=== PATIENT | female | born 1970 | race Two or more races ===

== ENCOUNTER 2025-02-18 23:04 | Emergency (ER) | payer SELFPAY ==
[~2025-02-18] VITALS: Ht 160 cm; Wt 63.5 kg
[2025-02-18] MEDS ORDERED: VALA100026 PO (23:53)
[2025-02-18] MEDS ORDERED: PRED20TA PO (23:53)
[2025-02-19 00:11] LABS: BASOPHILS % (AUTO) 0.3 % (0.0-2.0); EOSINOPHILS # (AUTO) 0.3 K/uL (0.0-0.7); EOSINOPHILS % (AUTO) 4.6 % (0.0-7.0); HEMOGLOBIN 11.7 g/dL (10.9-14.3); MEAN CORPUSCULAR HEMOGLOBIN 28.8 uug (24.7-32.8); MEAN CORPUSCULAR HGB CONC 34 g/dL (32.3-35.6); MEAN CORPUSCULAR VOLUME 85.9 fL (75.5-95.3); MONOCYTES # (AUTO) 0.6 K/uL (0.1-1.30); MONOCYTES % (AUTO) 9.6 % (0.0-11.0); NEUTROPHILS # (AUTO) 3.9 K/uL (1.8-8.9); NEUTROPHILS % (AUTO) 67.5 % (38.5-71.5); PLATELET COUNT (AUTO) 223 K/uL (179-408); RED BLOOD CELL COUNT(AUTO) 4.07 MIL/uL (3.63-4.92); RED CELL DISTRIBUTION WIDTH 12.7 % (12.3-17.7); WHITE BLOOD COUNT (AUTO) 5.8 K/uL (3.8-11.8)
[2025-02-19 00:14] LABS: DIFFERENTIAL COMMENT 1
[2025-02-19 00:25] LABS: CALCIUM 9.5 mg/dL (8.5-10.1); CARBON DIOXIDE 27 mmol/L (21-32); CHLORIDE 102 mmol/L (98-107); CREATININE 0.7 mg/dL (0.6-1.3); GLUCOSE 90 mg/dL (74-106); POTASSIUM 4.1 mmol/L (3.5-5.1); SODIUM SERUM 138 mmol/L (136-145); UREA NITROGEN, BLOOD 15 mg/dL (7-18)
[2025-02-19] MEDS ORDERED: predniSONE 20 MG TABLET ONE (00:34)
[2025-02-19] MEDS ORDERED: ACYCLOVIR 200 MG CAPSULE ONE (00:35)
[2025-02-19 00:36] LABS: ALANINE AMINOTRANSFERASE 19 U/L (14-59); ALBUMIN 3.6 g/dL (3.4-5.0); ALKALINE PHOSPHATASE 99 U/L (50-136); ASPARTATE AMINOTRANSFERASE 18 U/L (15-37); BILIRUBIN,TOTAL 0.3 mg/dL (0.2-1.0); NT-PRO BNP 138 pg/mL (0-125); TOTAL PROTEIN, SERUM 8.7 g/dL (6.4-8.2)
[2025-02-19] MEDS: ACYCLOVIR 400 MG TABLET PO ONE (00:36)
[2025-02-19] MEDS: predniSONE 20 MG TABLET PO ONE (00:36)
[2025-02-19 00:55] LABS: BILIRUBIN,DIRECT < 0.1 mg/dL (0.0-0.2)
[2025-02-19] MEDS ORDERED: IBUP-1490 PO (03:45)
[2025-02-19 04:02] VITALS: BP 126/72; TEMP 98; O2SAT 97
== END 2025-02-19 04:03 | disposition home or self-care (01) ==
LOC: ER 23:12
DX: B02.9 Zoster without complications (principal); M25.561 Pain in right knee; M25.562 Pain in left knee; R07.89 Other chest pain; R06.02 Shortness of breath; R05.9 Cough, unspecified; R94.31 Abnormal electrocardiogram [ECG] [EKG]; R21 Rash and other nonspecific skin eruption; Z79.52 Long term (current) use of systemic steroids; Z79.624 Long term (current) use of inhibitors of nucleotide synthesis; Z88.0 Allergy status to penicillin; Z88.1 Allergy status to other antibiotic agents; Z88.2 Allergy status to sulfonamides
CPT/HCPCS: 99285; 71045; 36415; 93005; 80076; 80048; 83880; 85025; 85379; 84484 ×2; J7512; A4606; A4663